=== PATIENT | female | born 1975 | race Caucasian/White ===

== ENCOUNTER 2019-04-30 09:36 | Day surgery (SDC) | payer OTHER ==
[2019-04-27 11:59] VITALS: BMI 27.9
[2019-04-30] MEDS ORDERED: EPINEPHrine 1:1,000 1 MG/1 ML - 30ML VIAL (INJECTION) ONE (12:23)
[2019-04-30] MEDS ORDERED: BUPIVACAINE HCL/PF 2.5 MG/ML - 30 ML VIAL IJ ONE (12:23)
[2019-04-30] MEDS ORDERED: PROPOFOL 20 ML ONE (12:26)
[2019-04-30] MEDS ORDERED: MIDAZOLAM HCL 2 MG/2 ML SINGLE DOSE VIAL ONE (12:26)
[2019-04-30] MEDS ORDERED: KETOROLAC TROMETHAMINE 30 MG/1 ML VIAL ONE (12:27)
[2019-04-30] MEDS ORDERED: ONDANSETRON 4 MG/2 ML VIAL ONE (12:27)
[2019-04-30] MEDS ORDERED: LIDOCAINE HCL/PF 2% SDV 5ML VIAL ONE (12:27)
[2019-04-30] MEDS ORDERED: DEXAMETHASONE SOD PHOSPHATE 4 MG/1 ML VIAL ONE (12:27)
[2019-04-30] MEDS ORDERED: BUPIVACAINE HCL/PF 0.25% (2.5MG/ML) 10 ML VIAL IJ ONE (13:50)
[2019-04-30] MEDS ORDERED: ONDANSETRON 4 MG/2 ML VIAL IVPUSH PRN (14:16)
[2019-04-30] MEDS ORDERED: oxyCODONE HCL 5 MG TABLET PO PRN ×2 (14:16)
[2019-04-30] MEDS ORDERED: LACTATED RINGERS SOLUTION 1,000 ML IV SCH (14:30)
[2019-04-30 15:59] VITALS: BP 116/67; PULSE 78; TEMP 97.9
--- NOTE | 2019-05-01 08:05 | OP ---
DATE OF OPERATION: 04/30/2019 SURGEON: Óscar Montanez MD MOLD FILLER: FLAKITO Alfaro PREOPERATIVE DIAGNOSES: 1. Left knee medial and lateral meniscus tear. 2. Left knee cartilage injury. 3. Left knee synovitis. POSTOPERATIVE DIAGNOSES: 1. Left knee medial and lateral meniscus tear. 2. Left knee cartilage injury. 3. Left knee synovitis. PROCEDURE: 1. Left knee arthroscopy, partial meniscectomy of medial and lateral meniscus. CPT code 52588. 2. Left knee arthroscopy with chondroplasty and abrasoplasty. CPT code 71989. 3. Left knee arthroscopy with synovectomy. CPT code 30890. FINDINGS: 1. Previous ACL tear. 2. Medial meniscus anterior one-third tear. 3. Lateral meniscus bucket-handle tear, central one-third with posterior obliteration of posterior horn. 4. Synovitis of patellofemoral, medial, lateral, and notch area. 5. Central grade 2-3 cartilage injury, medial femoral condyle with 6 cm x 4 cm delamination. 6. ACL chronic tear. 7. PCL intact. 8. Diffuse grade 1-2 cartilage injury, lateral joint line with central grade 3 changes. 9. Central grade 2-4 cartilage injury, patella, femur, trochlea, and patellofemoral joint. PROCEDURE: Informed consent was obtained. The patient came to the operating room, where the lower extremity was prepped and draped in a sterile fashion. A tourniquet was placed on the upper thigh, but not inflated. Using standard arthroscopic technique, a lateral incision and portal was made to allow for introduction of the camera into the suprapatellar bursa. This was then taken to the medial joint line, where under direct visualization, a medial incision and portal was made. Excessive synovium noted in the medial, lateral and patellofemoral and notch area was removed by an upbiter, shaver and Bovie cautery. This was found to bring in inflammatory tissue into the joint surface, a source of pain and dysfunction. Probing of the medial and lateral meniscus found tears, as described in the findings. These were removed with the upbiter and shaver and taken back to a stable rim. Grade 2 to 3 degenerative changes were treated with a chondroplasty, removing all flaking surfaces with low-setting Bovie along the periphery to prevent further flaking. Grade 4 changes, as noted, were treated with an abrasoplasty, creating a bleeding surface at the bone/cartilage interface. Aggressive debridement with shaver/rachel created bleeding surface. Micro fracture also done when indicated in findings. All areas of the knee were once again reexamined. The knee was then drained and a single suture was placed in all portals. A sterile dressing was placed and the patient was transferred to the recovery room without complication. The PA listed above was present and assisted at surgery. Their presence was absolutely medically necessary for the completion of the procedure. They helped hold the arthroscopy, pass instruments (and implants when indicated) and the procedure could not have been completed without their assistance. ÓSCAR MONTANEZ M.D. [id number]
--- NOTE | 2019-05-04 12:26 | PATH ---
Surgical Pathology Report Patient Name: SHILO GOLDSTEIN [facility]. Rec. #: [id number] /Age/Gender: 1975 (Age: 43) / F Account: [id number] Location: [facility] Taken: 04/30/2019 Received: 04/30/2019 Reported: 05/04/2019 Physicians: Óscar Power M.D. Specimen(s) Received LEFT KNEE SHAVINGS Clinical History Left knee internal derangement Final Diagnosis KNEE SHAVINGS, LEFT, ARTHROSCOPY, PARTIAL MEDIAL AND LATERAL MENISCECTOMY, CHONDROPLASTY: FRAGMENTS OF DENSE FIBROCONNECTIVE TISSUE, CARTILAGE, AND ADIPOSE TISSUE. Electronically Signed Haydee Aldrich M.D. Gross Description Received in formalin, labeled "left knee shavings," is a 5.0 x 4.5 x 0.4 cm. aggregate of jain-yellow soft tissue fragments. A b2b sales representative portion is submitted in one cassette. /05/03/2019 [facility]05/03/2019
== END 2019-04-30 15:59 | disposition home or self-care (01) ==
LOC: FASU 09:36
PROVIDERS: ATTEND Orthopaedic Surgery
PROC: 0SBD4ZZ Excision of Left Knee Joint, Percutaneous Endoscopic Approach (ICD-10-PCS; 2019-04-30)
PROC: 0SBD4ZZ Excision of Left Knee Joint, Percutaneous Endoscopic Approach (ICD-10-PCS; 2019-04-30)
PROC: 0SBD4ZZ Excision of Left Knee Joint, Percutaneous Endoscopic Approach (ICD-10-PCS; principal; 2019-04-30 13:03)
DX: S83.242A Other tear of medial meniscus, current injury, left knee, initial encounter (principal); S83.282A Other tear of lateral meniscus, current injury, left knee, initial encounter; S83.8X2A Sprain of other specified parts of left knee, initial encounter; M65.862 Other synovitis and tenosynovitis, left lower leg; X58.XXXA Exposure to other specified factors, initial encounter; Y93.9 Activity, unspecified; Y92.9 Unspecified place or not applicable
CPT/HCPCS: 84703; 88304-TC; 94760

== ENCOUNTER 2020-01-26 12:06 | Day surgery (SDC) | payer OTHER ==
[2020-01-26 10:20] VITALS: BMI 28.3
[2020-01-26 12:40] LABS: BASO % 0.7 % (0-2.0); HEMATOCRIT 39.7 % (32.4-45.2); HEMOGLOBIN 13.3 GM/dL (10.7-15.3); LYMPH % 38.3 % (8-40); MCH 29.3 pg (25.7-33.7); MCHC 33.5 g/dl (32.0-36.0); MEAN CELL VOLUME 87.5 fl (80-96); MEAN PLT VOLUME 8.6 fl (7.5-11.1); MONO % 9.6 % (3.8-10.2); NEUT % 50.4 % (42.8-82.8); PLATELET COUNT 243 K/MM3 (134-434); RBC 4.54 M/mm3 (3.60-5.2); RDW 13.7 % (11.6-15.6); WHITE BLOOD COUNT 7.1 K/mm3 (4.0-10.0)
[2020-01-26 12:54] LABS: INR 1.03 (0.83-1.09); PROTHROMBIN TIME (PATIENT) 12.1 SEC (9.7-13.0)
[2020-01-26 12:57] LABS: ACTIVATED PTT 34.9 SECONDS (25.2-36.5)
[2020-01-26 13:06] LABS: ALBUMIN 3.5 g/dl (3.4-5.0); BILIRUBIN,TOTAL 0.6 mg/dL (0.2-1); BLOOD UREA NITROGEN 11.2 mg/dL (7-18); CALCIUM 8.2 mg/dL (8.5-10.1); CREATININE 0.6 mg/dL (0.55-1.3); POTASSIUM 3.6 mmol/L (3.5-5.1); TOT PROT 6.4 g/dl (6.4-8.2)
[2020-01-26] MEDS ORDERED: KETOROLAC TROMETHAMINE 30 MG/1 ML VIAL ONE (13:26)
[2020-01-26] MEDS ORDERED: DEXAMETHASONE SOD PHOSPHATE 4 MG/1 ML VIAL ONE (13:26)
[2020-01-26] MEDS ORDERED: MIDAZOLAM HCL 2 MG/2 ML SINGLE DOSE VIAL ONE ×2 (13:27)
[2020-01-26] MEDS ORDERED: PROPOFOL 20 ML ONE ×2 (13:27→14:37)
[2020-01-26] MEDS ORDERED: ONDANSETRON 4 MG/2 ML VIAL IVPUSH PRN (14:11)
[2020-01-26] MEDS ORDERED: oxyCODONE HCL 5 MG TABLET PO PRN ×2 (14:11)
[2020-01-26] MEDS ORDERED: LACTATED RINGERS SOLUTION 1,000 ML IV SCH (14:15)
--- NOTE | 2020-01-26 14:30 | HP ---
History & Physical Update - History History: No Change (Missed Ab at under 14 wk, fibroid uterus) - Physical Physical: No Change - Assessment Assessment: No Change - Plan Plan: No Change (Suction D&C)
--- NOTE | 2020-01-26 14:36 | HP ---
Past Medical History - Primary Care Physician PCP:: Lewis Tolliver - Admission Chief Complaint: 44yo P0020 with missed Ab at 8wk admitted for suction/D&C. History of Present Illness: Pt was seen in office yesterday and diagnosed with missed ab. She is asymptomatic and requested D&C. Pt with prior h/o losses x 2. History Source: Patient, Medical Record Limitations to Obtaining History: No Limitations - Past Medical History CONTRACT PROGRAMMER: No: Alzheimer's, CVA, Dementia, Migraine, Multiple Sclerosis, Peripheral Neuropathy, Parkinson's, Seizure, Syncope, TIA, Vertigo, Other Cardiovascular: No: AFIB, Aneurysm, Aortic Insufficiency, Aortic Stenosis, CAD, CHF, Deep Vein Thrombosis, HTN, Hyperlipdemia, CA, Mitral Insufficiency, Mitral Stenosis, Murmur, Pulmonary Hypertension, Other Pulmonary: No: Asthma, Bronchitis, Cancer, COPD, O2 Dependent, Pneumonia, Previously Intubated, Pulmonary Embolus, Pulmonary Fibrosis, Sleep Apnea, Other Gastrointestinal: No: Ascites, Cancer, Constipation, Crohn's Disease, Diverticulitis, Diverticulosis, Esophageal Varices, Gastritis, GERD, GI Bleed, Hemorrhoids, Hiatal Hernia, Inflamatory Bowel Disease, Irritable Bowel Disease, Pancreatitis, Peptic Ulcer Disease, Ulcerative Colitis, Other Hepatobiliary: No: Cirrhosis, Cholelithiasis, Cholecystitis, Choledocholithiasis , Hepatitis A, Hepatitis B, Hepatitis C, Other Renal/: No: Renal Failure, Renal Inusuff, BPH, Cancer, Hematuria, Hemodialysis , Neurogenic Bladder, Renal Calculi, UTI, Other Reproductive: Yes: Fibroids, Polycystic Ovary Syndrome ...: 3 ...Para: 0 ...Spon : 2 Heme/Onc: No: Anemia, B12 Deficiency, Bleeding Disorder, Cancer, Current Chemotherapy, Current Radiation Therapy, Hemochromatosis, Hypercoaguable State, Myeloproliferative Synd, Sickle Cell Disease, Sickle Cell Trait, Thrombocytopenia, Other Infectious Disease: No: AIDS, C-Diff, Herpes Zoster, HIV, MRSA, STD's, Tuberculosis, VREF, Other Psych: No: Addictions, Anxiety, Bipolar, Depression, Panic, Psychosis, Schizophrenia, Other Musculoskeletal: No: Bursitis, Chronic low back pain, Hemiparesis, Hemiplegia, Osteoarthritis, Paraplegia, Other Rheumatology: No: Fibromyalgia, Gout, Lupus, Rheumatoid Arthritis, Sarcoidosis, Vasculitis, Other ENT: No: Allergic Rhinitis, Sinusitis, Other Endocrine: No: Savannah's Disease, Keyonna's Disease, Diabetes Insipidus, Diabetes Mellitus, Hyperparathyroidism, Hyperthyroidism, Hypothyroidism, Osteopenia, SIADH, Other Dermatology: No: Basal Cell, Cellulitis, Eczema, Melanoma, Psoriasis, Squamous Cell, Other - Past Surgical History Past Surgical History: Yes: Arthrosocopy Hx Myomectomy: No Hx Transabdominal Cerclage: No Additional Surgical History: D&C - Smoking History Smoking history: Former smoker Have you smoked in the past 12 months: No If you are a former smoker, when did you quit?: 2009 - Alcohol/Substance Use Hx Alcohol Use: Yes (BEER 1-2 WEEKENDS) History of Substance Use: reports: None - Social History Usual Living Arrangement: Yes: With Spouse Occupation: [employer] History of Recent Travel: No Home Medications - Allergies Allergies/Adverse Reactions: Allergies Allergy/AdvReac Type Severity Reaction Status Date / Time No Known Drug Allergies Allergy Verified 01/26/20 13:03 - Home Medications Home Medications: Ambulatory Orders NK [No Known Home Medication] 04/27/19 Family Medical History Family Hx Coronary Artery Disease: Father Family Hx Diabetes: Mother Review of Systems - Review of Systems Constitutional: reports: No Symptoms Eyes: reports: No Symptoms HENT: reports: No Symptoms Neck: reports: No Symptoms Cardiovascular: reports: No Symptoms Respiratory: reports: No Symptoms Gastrointestinal: reports: No Symptoms Genitourinary: reports: No Symptoms Breasts: reports: No Symptoms Reported Musculoskeletal: reports: No Symptoms Integumentary: reports: No Symptoms Neurological: reports: No Symptoms Endocrine: reports: No Symptoms Hematology/Lymphatic: reports: No Symptoms Psychiatric: reports: No Symptoms Pain Intensity: 0 Physical Exam-KILN PACKER Vital Signs: Vital Signs Temperature 98.2 F 01/26/20 12:35 Pulse Rate 89 01/26/20 12:35 Respiratory Rate 12 01/26/20 12:35 Blood Pressure 137/70 01/26/20 12:35 O2 Sat by Pulse Oximetry (%) 99 01/26/20 12:35 Constitutional: Yes: Well Nourished, No Distress, Calm Eyes: Yes: WNL, Conjunctiva Clear, EOM Intact HENT: Yes: WNL, Atraumatic, Normocephalic Neck: Yes: WNL, Supple, Trachea Midline Cardiovascular: Yes: WNL, Regular Rate and Rhythm Respiratory: Yes: WNL, Regular, CTA Bilaterally Gastrointestinal: Yes: WNL, Normal Bowel Sounds, Soft ...Rectal Exam: Yes: Deferred Renal/: Yes: WNL Pelvis: Yes: WNL External Genitalia: Yes: Normal Internal Exam Deferred: No Vaginal Exam: Yes: Normal Cervix: Yes: Normal Uterus: Yes: Enlarged Adnexa: Normal: Left, Right Breast(s): Yes: WNL Musculoskeletal: Yes: WNL Extremities: Yes: WNL Edema: No Integumentary: Yes: WNL Neurological: Yes: WNL, Alert, Oriented ...Motor Strength: WNL Psychiatric: Yes: WNL, Alert, Oriented Labs: CBC, BMP 01/26/20 12:20 01/26/20 12:20 Imaging - Results Ultrasound: Report Reviewed, Image Reviewed Assessment/Plan 44yo P0020 with missed Ab at 8wk admitted for suction/D&C. We had a long discussion about the risks, benefits, and alternatives of surgery. I explained the risks of infection, bleeding, scarring, amenorrhea, Asherman's syndrome, infertility, perforation, need for additional surgery to treat any complications , etc. The pt declined expectant management of missed ab or prostaglandin indx. She requested to proceed with surgery. I emphasized that all surgeries have risks and no guarantees can be provided.
[2020-01-26] MEDS ORDERED: ceFAZolin SODIUM 1 GM VIAL IVPB ONE (14:38)
[2020-01-26] MEDS ORDERED: ceFAZolin SODIUM 1 GM VIAL ONE (14:49)
[2020-01-26] MEDS ORDERED: SODIUM CHLORIDE 0.9% P/F 10 ML VIAL IJ ONE (14:49)
--- NOTE | 2020-01-26 15:23 | OP ---
Operative Note - Note: Operative Date: 01/26/20 Pre-Operative Diagnosis: Missed Ab Operation: Suction, D&C (surgical Tx of missed Ab <14wk) Findings: Enlarged uterus c/w ~9wk , no RPOC at end of procedure. Post-Operative Diagnosis: Same as Pre-op Surgeon: Lewis Tolliver Anesthesiologist/BISCUIT PACKER: Tara Guardado Anesthesia: General Specimens Removed: POC Estimated Blood Loss (mls): 30 Blood Volume Replaced (mls): 0 Fluid Volume Replaced (mls): 700 Operative Report Dictated: Yes
[2020-01-26 16:00] VITALS: PULSE 78; TEMP 98
[2020-01-26 16:59] VITALS: BP 113/72
--- NOTE | 2020-01-27 09:59 | OP ---
DATE OF OPERATION: 01/26/2020 PREOPERATIVE DIAGNOSIS: Missed at approximately 8-1/2 weeks of . POSTOPERATIVE DIAGNOSIS: Missed at approximately 8-1/2 weeks of . PROCEDURE: Suction dilatation and curettage (surgical treatment of missed under 14 weeks of estimated gestational age). SURGEON: Rigo Lozada MD ANESTHESIOLOGIST: Tara Guardado MD ANESTHESIA: General. COMPLICATIONS: None. PATHOLOGY: Placenta and products of conception. INTRAVENOUS FLUIDS: 700 mL. ESTIMATED BLOOD LOSS: 30 mL. FINDINGS: Examination under anesthesia revealed an enlarged uterus consistent with approximately a 9-week gestation. During the surgery, products of conception were noted. No retained products of conception were noted at the end of the procedure. Excellent hemostasis was noted at the end of the procedure. DESCRIPTION OF PROCEDURE: The patient was met preoperatively. Risks, benefits, and alternatives of surgery were discussed at length. The consent form was reviewed, and all questions were answered. The patient verbalized her understanding, and the consent form was signed. The patient then requested to proceed with the surgery. The patient was brought to the OR with the IV running. She was placed on the surgical table in the supine position. The general anesthesia was achieved without difficulty. The patient was then placed in a dorsal lithotomy position using adjustable Niko stirrups. She was examined under anesthesia with the findings as described above. The patient was then prepped and draped in the usual sterile fashion. A sterile speculum was introduced inside the vagina with good visualization of the cervix. The cervix was grasped with a single-tooth tenaculum. The cervical os was gently dilated using graduated cervical dilators to accommodate a size 27 Schreiber dilator. An 8-mm suction curette was then used to evacuate the products of conception. Once this was completed, a sharp curette was used to confirm that there were no retained products of conception. Once the empty uterine cavity was assured, all of the instruments were removed from the patient. Excellent hemostasis was noted. Sponge, lap, and instrument counts were correct. The patient was returned to supine position. She was then transferred to recovery room in stable condition and awake. RIGO LOZADA M.D. [id number]
--- NOTE | 2020-01-27 16:41 | PATH ---
Surgical Pathology Report Patient Name: SHILO GOLDSTEIN Med. Rec. #: [id number] /Age/Gender: 1975 (Age: 44) / F Account: [id number] Location: [facility] Taken: 01/26/2020 Received: 01/26/2020 Reported: 01/27/2020 Physicians: Lewis Tolliver M.D. Specimen(s) Received PRODUCTS OF CONCEPTION Clinical History Missed Final Diagnosis PRODUCTS OF CONCEPTION: CHORIONIC VILLI PRESENT, CONSISTENT WITH PRODUCTS OF CONCEPTION. Note: Chromosomal analysis result is pending. An addendum report to follow. Electronically Signed Noah Meraz M.D. Gross Description Received fresh labeled "products of conception for chromosomal analysis and micro-array," is a 9.5 x 8.0 x 1.0 cm aggregate of jain red soft tissue fragments. Villous tissue is identified. No somatic tissue is identified. A community engagement representative portion of villous tissue is placed in RPMI solution and sent for chromosomal analysis. An additional community engagement representative portion is submitted in one cassette. /01/26/2020 [facility]01/26/2020
== END 2020-01-26 17:00 | disposition home or self-care (01) ==
LOC: JASU-SURG 12:06 → JOR 12:06 → JASU-SURG 17:00
PROVIDERS: ATTEND Obstetrics & Gynecology
PROC: 10D17Z9 Manual Extraction of Products of Conception, Retained, Via Natural or Artificial Opening (ICD-10-PCS; principal; 2020-01-26 14:00)
DX: O02.1 Missed abortion (principal); Z3A.08 8 weeks gestation of pregnancy
CPT/HCPCS: 36415; 80053; 85025; 85610; 85730; 86850; 86900; 86901; 94760